=== PATIENT | male | born 1980 | race African-American/Black ===

== ENCOUNTER 2022-04-03 09:57 | Emergency (ER) | payer OTHER ==
[2022-04-03 10:05] VITALS: PULSE 77; TEMP 98.6; BMI 21.9
[2022-04-03 10:24] VITALS: BP 143/89
[2022-04-03] MEDS ORDERED: KETOROLAC TROMETHAMINE 30 MG/1 ML VIAL IM ONE (11:06)
[2022-04-03] MEDS ORDERED: CYCLOBENZAPRINE HCL 10 MG TABLET (FP) PO ONE (11:07)
[2022-04-03] MEDS ORDERED: CYCLOBENZAPRINE HCL 10 MG TABLET (FP) ONE (11:34)
[2022-04-03] MEDS ORDERED: KETOROLAC TROMETHAMINE 30 MG/1 ML VIAL ONE (11:34)
== END 2022-04-03 12:26 | disposition home or self-care (01) ==
LOC: JERFT 09:57
PROC: 3E023GC Introduction of Other Therapeutic Substance into Muscle, Percutaneous Approach (ICD-10-PCS; principal; 2022-04-03)
DX: R51.9 Headache, unspecified (principal); M54.2 Cervicalgia; M54.50 Low back pain, unspecified; V49.40XA Driver injured in collision with unspecified motor vehicles in traffic accident, initial encounter
CPT/HCPCS: 72040-TC; 72100-TC-FY; 99284-25